=== PATIENT | male | born 1940 | race African-American/Black ===

== ENCOUNTER 2020-11-30 11:54 | Outpatient (CLI) | payer MEDICARE, SELFPAY ==
[2020-11-30 13:33] LABS: Free T4 Free Thyroxine 0.75 ng/mL (0.78-2.19)
== END 2020-11-30 11:55 | disposition home or self-care (01) ==
PROVIDERS: Visit Provider Internal Medicine Endocrinology, Diabetes & Metabolism
DX: E05.90 Thyrotoxicosis, unspecified without thyrotoxic crisis or storm (principal)
CPT/HCPCS: 36415; 84439; 84443

== ENCOUNTER 2021-08-16 10:57 | Outpatient (CLI) | payer MEDICARE, SELFPAY ==
[2021-08-16 12:29] LABS: Free T4 Free Thyroxine 0.78 ng/mL (0.78-2.19)
== END 2021-08-16 10:58 | disposition home or self-care (01) ==
PROVIDERS: Visit Provider Internal Medicine Endocrinology, Diabetes & Metabolism
DX: E05.90 Thyrotoxicosis, unspecified without thyrotoxic crisis or storm (principal)
CPT/HCPCS: 36415; 84439; 84443

== ENCOUNTER 2021-11-21 15:48 | Outpatient (CLI) | payer MEDICARE, SELFPAY ==
[2021-11-21 16:39] LABS: Free T4 Free Thyroxine 0.98 ng/mL (0.78-2.19)
== END 2021-11-21 15:49 | disposition home or self-care (01) ==
PROVIDERS: Referring Provider Internal Medicine Endocrinology, Diabetes & Metabolism; Visit Provider Internal Medicine Endocrinology, Diabetes & Metabolism
DX: E05.90 Thyrotoxicosis, unspecified without thyrotoxic crisis or storm (principal)
CPT/HCPCS: 36415; 84439; 84443